=== PATIENT | male | born 1975 | race African-American/Black ===

== ENCOUNTER 2020-10-23 08:35 | Emergency (ER) | payer OTHER ==
[~2020-10-23] VITALS: Ht 190.5 cm; Wt 81.6 kg
[2020-10-23] MEDS ORDERED: KEFLEX500 MG PO (09:08)
[2020-10-23 09:23] VITALS: BP 136/79
== END 2020-10-23 09:24 | DRG 159 ==
LOC: ED 08:35
DX: S01.512A Laceration without foreign body of oral cavity, initial encounter (principal); S01.511A Laceration without foreign body of lip, initial encounter; S01.411A Laceration without foreign body of right cheek and temporomandibular area, initial encounter; X58.XXXA Exposure to other specified factors, initial encounter; Y92.149 Unspecified place in prison as the place of occurrence of the external cause